=== PATIENT | male | born 1995 | race Caucasian/White ===

== ENCOUNTER 2016-12-27 07:13 | Emergency (ER) | payer OTHER ==
[2016-12-27] MEDS ORDERED: DIPHENHYDRAMINE HCL 50 MG CAPSULE PO ONE (08:11)
[2016-12-27] MEDS ORDERED: AMOXICILLIN TRIHYDRATE 500 MG CAPSULE PO ONE (08:11)
[2016-12-27] MEDS ORDERED: IBUPROFEN 800 MG TABLET PO ONE (08:11)
--- NOTE | 2016-12-27 08:13 | ER Document Report ---
ED Headache - General Chief Complaint: Headache Stated Complaint: HEAD PAIN Time Seen by Provider: 12/27/16 07:55 Mode of Arrival: Ambulatory Information source: Patient Notes: Patient is a 21-year-old male brought into the emergency department today for headache, sinus pressure, cough 3 days. Patient is a little light sensitive for this headache and states that the pain shoots from his face to the back of his head. He also admits to pressure and pain behind both of his eyes. He admits to runny nose and sore throat. He admits to chills but denies any fever. He has no shortness of breath, wheezing no history of asthma. TRAVEL OUTSIDE OF THE [place] IN LAST 30 DAYS: No - Related Data Allergies/Adverse Reactions: No Known Allergies Allergy (Unverified 12/27/16 07:19) Past Medical History - General Information source: Patient - Social History Smoking Status: Never Smoker Family History: Reviewed & Not Pertinent Patient has suicidal ideation: No Patient has homicidal ideation: No Renal/ Medical History: Denies: Hx Peritoneal Dialysis Review of Systems - Review of Systems Constitutional: See HPI EENT: See HPI Cardiovascular: No symptoms reported Respiratory: See HPI Gastrointestinal: No symptoms reported Genitourinary: No symptoms reported Male Genitourinary: No symptoms reported Musculoskeletal: No symptoms reported Skin: No symptoms reported Hematologic/Lymphatic: No symptoms reported Neurological/Psychological: No symptoms reported Physical Exam - Vital signs Vitals: Temp Pulse Resp BP Pulse Ox 98.8 F 93 16 128/55 H 99 12/27/16 07:18 12/27/16 07:18 12/27/16 07:18 12/27/16 07:18 12/27/16 07:18 - Notes Notes: PHYSICAL EXAMINATION: GENERAL: Well-appearing and in no acute distress. HEAD: Atraumatic, normocephalic. EYES: Pupils equal round and reactive to light, extraocular movements intact, sclera anicteric, conjunctiva are normal. ENT: ear canals without erythema or foreign body, TMs pearly caraballo with good bony landmarks, nares with mucoid discharge, oropharynx clear without exudates. Moist mucous membranes. Maxillary sinuses tender to palpation NECK: Normal range of motion, supple without lymphadenopathy LUNGS: CTAB and equal. No wheezes rales or rhonchi. HEART: Regular rate and rhythm without murmurs ABDOMEN: Soft, no tenderness. No guarding, no rebound BACK: no vertebral tenderness, normal ROM GI/: no CVA tenderness EXTREMITIES: Normal range of motion, no pitting edema. No cyanosis. NEUROLOGICAL: Cranial nerves grossly intact. Normal sensory/motor exams. PSYCH: Normal mood, normal affect. SKIN: Warm, Dry, normal turgor, no rashes or lesions noted Course - Re-evaluation Re-evalutation: Patient is smiling on my exam, is uncomfortable with palpation of sinuses and movement of head, vital signs are all normal, he is afebrile, will treat for sinusitis and bronchitis. - Vital Signs Vital signs: Temp Pulse Resp BP Pulse Ox 99.2 F 88 16 134/59 H 99 12/27/16 08:33 12/27/16 08:33 12/27/16 07:19 12/27/16 08:33 12/27/16 08:33 Discharge - Discharge Clinical Impression: Bronchitis Sinusitis Qualifiers: Sinusitis location: unspecified location Chronicity: acute Recurrence: non- recurrent Qualified Code(s): J01.90 - Acute sinusitis, unspecified Headache Qualifiers: Headache type: unspecified Headache chronicity pattern: acute headache Intractability: not intractable Qualified Code(s): R51 - Headache Condition: Stable Disposition: HOME, SELF-CARE Additional Instructions: Return immediately for any new or worsening symptoms. Follow up with primary care provider, call tomorrow to make followup appointment. Prescriptions: Benzonatate [Tessalon Perle 100 mg Capsule] 100 mg PO Q8HP PRN #30 cap PRN Reason: Amoxicillin 500 mg PO BID #20 capsule Fluticasone Propionate [Flonase Nasal Falconer 50 Mcg/Falconer 16 gm] 2 sprays NASL Q12 #1 inhaler Ibuprofen [Motrin 800 mg Tablet] 800 mg PO Q8H PRN #30 tab PRN Reason: Forms: Parent Work Note, Return to Work Referrals: BERYL ROSE DO [Primary Care Provider] - Follow up as needed
[2016-12-27 08:46] VITALS: BP 134/59
== END 2016-12-27 08:34 | disposition home or self-care (01) ==
LOC: ER 07:13
DX: J01.90 Acute sinusitis, unspecified (principal); J40 Bronchitis, not specified as acute or chronic; R51 Headache
CPT/HCPCS: 99283